=== PATIENT | female | born 1975 | race Caucasian/White ===

== ENCOUNTER 2018-09-04 06:06 | Inpatient (IN) | payer OTHER ==
[2018-08-29 16:18] VITALS: BMI 30.4
[~2018-09-04 06:06] MED LIST: oxyCODONE HCL 10 MG SUSTAINED ACTING TABLET PO ONE
[2018-09-04] MEDS ORDERED: THROMBIN (RECOMBINANT) 5,000 UNIT VIAL TP ONE (07:22)
[2018-09-04] MEDS ORDERED: MIDAZOLAM HCL 2 MG/2 ML SINGLE DOSE VIAL ONE ×2 (08:09→09:10)
[2018-09-04] MEDS ORDERED: BUPIVACAINE HCL/PF (5 MG/ML) 30 ML VIAL IJ ONE (08:09)
[2018-09-04] MEDS ORDERED: BUPIVACAINE LIPOSOME/PF (EXPAREL) 266 MG/20 ML VIAL ONE (08:09)
--- NOTE | 2018-09-04 08:28 | HP ---
History & Physical Update - History History: No Change - Physical Physical: No Change - Assessment Assessment: No Change - Plan Plan: No Change
[2018-09-04] MEDS ORDERED: PROPOFOL 20 ML ONE (08:35)
[2018-09-04] MEDS ORDERED: SUCCINYLCHOLINE CHLORIDE 200 MG/10 ML VIAL ONE (08:36)
[2018-09-04] MEDS ORDERED: ceFAZolin SODIUM 1 GM VIAL ONE ×2 (08:48→15:09)
[2018-09-04] MEDS ORDERED: DEXAMETHASONE SOD PHOSPHATE 4 MG/1 ML VIAL ONE ×2 (08:48→11:01)
[2018-09-04] MEDS ORDERED: ONDANSETRON 4 MG/2 ML VIAL ONE ×2 (08:48→11:01)
[2018-09-04] MEDS ORDERED: THROMBIN (BOVINE) 5,000 UNIT VIAL TP ONE (09:22)
[2018-09-04] MEDS ORDERED: GELATIN SPONGE,ABSORBABLE 1 GM PACKET TP ONE (09:22)
[2018-09-04] MEDS ORDERED: oxyCODONE HCL 5 MG TABLET PO PRN (09:37)
[2018-09-04] MEDS ORDERED: ONDANSETRON 4 MG/2 ML VIAL IVPUSH PRN ×2 (09:37→11:21)
[2018-09-04] MEDS ORDERED: LACTATED RINGERS SOLUTION 1,000 ML IV SCH ×2 (09:45→11:30)
[2018-09-04] MEDS ORDERED: GUM MASTIC/STORAX/MSAL/ALCOHOL 1 DRP DROPSBTL MC ONE (10:49)
--- NOTE | 2018-09-04 11:21 | OP ---
Operative Note - Note: Operative Date: 09/04/18 Pre-Operative Diagnosis: lumbar radiculopathy, lumbar spondylolisthesis Operation: posterior decompression, instrumentation, fusion. Transforaminal interbody lumbar(L5) to Sacral(S1) fusion with allograft and neuromonitoring Surgeon: Michael Goodrich Adjunct Instructor Chemistry: Bev Darnell Anesthesiologist/WEED SCIENCE RESEARCH TECHNICIAN: Madie Vick Anesthesia: Spinal Estimated Blood Loss (mls): 30 Fluid Volume Replaced (mls): 1,000 Operative Report Dictated: Yes
[2018-09-04] MEDS ORDERED: ACETAMINOPHEN 1000 MG/100 ML VIAL (NON FORMULARY) IVPB ONE ×2 (11:25→11:30)
[2018-09-04] MEDS ORDERED: diazePAM 2 MG TABLET PO SCH (13:00)
[2018-09-04 14:06] VITALS: TEMP 98.4
--- NOTE | 2018-09-04 14:16 | SURG ---
Surgery Automobile Body Customizer Note Automobile Body Customizer: Bev Darnell PA-C Date of Service: 09/04/18 Diagnosis: lumbar radiculopathy, lumbar spondylolisthesis Procedure: posterior decompression, instrumentation, fusion. Transforaminal interbody lumbar(L5) to Sacral(S1) fusion with allograft and neuromonitoring I was present for the entirety of the operative procedure. For further detail, please refer to operative report. Visit type - Case Type Case Type: Scheduled - Emergency Emergency Visit: No - New patient This patient is new to me today: Yes Date on this admission: 09/04/18
[2018-09-04] MEDS ORDERED: diazePAM 2 MG TABLET ONE (14:19)
[2018-09-04] MEDS ORDERED: CEFAZOLIN 1 GM in DEXTROSE 5%-WATER - 50 ML IVPB SCH (16:00)
[2018-09-04] MEDS ORDERED: ACETAMINOPHEN 325 MG TABLET (FP) PO SCH (18:00)
[2018-09-04 18:34] VITALS: PULSE 70
[2018-09-04 18:39] VITALS: BP 112/72
[2018-09-04] MEDS ORDERED: DOCUSATE SODIUM 100 MG CAPSULE (FP) PO SCH (22:00)
[2018-09-05] MEDS ORDERED: LEVOTHYROXINE NA 100 MCG TABLET (FP) PO SCH (07:00)
--- NOTE | 2018-09-05 08:10 | OP ---
DATE OF OPERATION: 09/04/2018 PREOPERATIVE DIAGNOSIS: Spinal stenosis, L5-S1. POSTOPERATIVE DIAGNOSIS: Spinal stenosis, L5-S1. PROCEDURE PERFORMED: 1. Transforaminal lumbar interbody fusion, L5-S1. 2. Placement of instrumentation. 3. Placement of prosthetic cage. SURGEON: Michael Goodrich MD MANNEQUIN MOLD MAKER: TESSA Booth ESTIMATED BLOOD LOSS: 50 mL. INTRAVENOUS FLUIDS: Per Anesthesia. ANESTHESIA: Spinal/TLIP. COMPLICATIONS: None. DISPOSITION: Patient brought to the PACU in stable condition. INDICATION FOR SURGERY: The patient is a 43-year-old female who had previously undergone a laminectomy. She developed a reherniation at L5-S1. She had significant pain in her back as well as legs. She had gone through an exhaustive course of treatment with included medications, physical therapy as well as injections. Unfortunately pain continued to persist despite all this. At this point risks, benefits and alternatives were discussed and the patient consented to surgery. OPERATIVE NOTE: Patient brought to the operating room by Anesthesia. After appropriate patient identification was performed spinal anesthesia given along with a TLIP block. Patient was able to position herself prone on to the OR table with all areas of bony prominences well padded at this time. The C-arm was brought in. The L5-S1 pedicle was marked off. Her back was prepped and draped in a sterile manner. At this point timeout was completed. Incisions were made bilaterally over the L5-S1 pedicles. Dissection was carried down to the fascia. Fascia was then split open at this time. Under C-arm guidance trocars were advanced into both the L5 and S1 pedicles. Through the trocars a wire was inserted. [id number] tap was performed and the screws were inserted. On the right-hand side retractor blades were set up to expose the L5-S1 facet joint. The facet joint was removed. The disk was entered. Using a series of pituitaries, Kerrisons and curets a diskectomy was completed. The endplates were decorticated at this time. Bone graft was laid down. A cage filled with bone graft was placed in. Tulip pads were placed over the screws. A eliceo was measured and placed and caps and compression were applied. On the left-hand side a eliceo was measured and placed and caps and compression were applied. All x-ray instrumentation was removed at this time. The fascia was closed with a No. 1 Vicryl suture. Subcutaneous tissue was closed with 2--0 Vicryl suture. Skin was closed with 3-0 Monocryl suture. Dermabond was applied. Steri-Strips were applied. A sterile dressing was applied. Patient was placed supine on her bed and brought to the PACU in stable condition. Chela LYNN/[id number]
== END 2018-09-04 17:00 | disposition home or self-care (01) | DRG 304 ==
LOC: FM/S 06:06
PROVIDERS: ADMIT Orthopaedic Surgery Orthopaedic Surgery of the Spine; ATTEND Orthopaedic Surgery Orthopaedic Surgery of the Spine
PROC: 0SG3071 Fusion of Lumbosacral Joint with Autologous Tissue Substitute, Posterior Approach, Posterior Column, Open Approach (ICD-10-PCS; 2018-09-04)
PROC: 0SB40ZZ Excision of Lumbosacral Disc, Open Approach (ICD-10-PCS; 2018-09-04)
PROC: 4A11X4G Monitoring of Peripheral Nervous Electrical Activity, Intraoperative, External Approach (ICD-10-PCS; 2018-09-04)
PROC: 0SG30AJ Fusion of Lumbosacral Joint with Interbody Fusion Device, Posterior Approach, Anterior Column, Open Approach (ICD-10-PCS; principal; 2018-09-04 08:15)
DX: M43.16 Spondylolisthesis, lumbar region (principal); M54.16 Radiculopathy, lumbar region; M48.07 Spinal stenosis, lumbosacral region; M54.17 Radiculopathy, lumbosacral region
CPT/HCPCS: 72100-TC-FY; 94760; J0131